=== PATIENT | female | born 2005 | race Caucasian/White ===

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

== ENCOUNTER 2024-12-30 13:37 | Emergency (ER) | payer MEDICARE, MEDICAID, SELFPAY ==
[2024-12-30 13:47] VITALS: BP 127/64; PULSE 114; RESP 18; TEMP 36.4; O2SAT 99
--- NOTE | 2024-12-30 15:14 | ED_ITS ---
HPI - Abdominal Pain General Chief Complaint: Abdominal Pain Stated Complaint: hasn't had bowel movement for 2 weeks Time Seen by Provider: 12/30/24 14:50 Source: patient and RN notes reviewed Mode of arrival: ambulatory Limitations: no limitations History of Present Illness HPI narrative: 19-year-old female presents Express Care with mother and father complaining of constipation for 2 weeks. Mother states the patient has had a bowel movement since December 14. Patient has a history of cerebral palsy unable to communicate her needs. Mother says she has tried MiraLax, stool softeners without relief. Says she has been eating and drinking has a decreased appetite. Mother denies any nausea, vomiting, fevers, diarrhea every other symptoms. Today's she noticed the patient was more irritable 1 her further evaluated. Related Data Home Medications ?Medication ?Instructions ?Recorded ?Confirmed ?Last Taken ?Type benztropine 1 mg tablet 1 mg PO BID PRN IRRITABILITY 11/01/22 11/01/22 Unknown History clonazepam 0.5 mg disintegrating mg 12/30/24 Unknown History tablet escitalopram oxalate 5 mg tablet mg 12/30/24 Unknown History lamotrigine 100 mg tablet mg 12/30/24 Unknown History lamotrigine 25 mg tablet mg 12/30/24 Unknown History risperidone 0.5 mg tablet mg 12/30/24 Unknown History risperidone 1 mg tablet mg 12/30/24 Unknown History Allergies Allergy/AdvReac Type Severity Reaction Status Date / Time No Known Allergies Allergy Verified 12/30/24 13:59 Review of Systems Review of Systems: CONSTITUTIONAL: Denies fever, chills, or sweats. EYES: Denies visual changes, redness, or discharge. ENT: Denies rhinorrhea, congestion, sore throat, or otalgia. CARDIOVASCULAR: Denies chest pain, palpitations, or edema. RESPIRATORY: Denies cough or dyspnea. GASTROINTESTINAL: Denies abdominal pain, nausea, vomiting, or diarrhea. Positive constipation. GENITOURINARY: Denies dysuria or hematuria. SKIN: Denies rash or itching. MUSCULOSKELETAL: Denies back pain, joint pain, or myalgia. NEUROLOGIC: Denies headache, numbness, or weakness. Positive for increased irritability. PSYCHIATRIC: Denies anxiety or depression. All other systems reviewed are negative, except as documented in HPI. [facility] Past Medical History Medical History Seizure disorder Developmental non-verbal disorder Cerebral palsy Social History Social History Smoking status: Never smoker Alcohol intake: never Substance use type: does not use Additional living arrangements comments: with grandparents who are legal guardians Gender identity (if verbalized by the patient): Female Comments At the time of my signature, I reviewed and agree with the nursing past medical, surgical, social, and family history. There is no relevant family history pertinent to the patient complaint. Exam Narrative: GENERAL: This is a well-nourished, well-developed adult, in no apparent distress. They are non ill-appearing, nontoxic appearing. HEAD: normocephalic, atraumatic. EYES: Sclera clear/white. Conjunctiva normal. Vision is grossly intact. Extraocular movements intact EARS: External ears normal, Hearing grossly intact. NOSE: External nose normal . THROAT: Mucous membranes moist, NECK: Neck supple, CARDIOVASCULAR: Regular rate and rhythm without murmurs, gallops, or rubs. RESPIRATORY: Clear to auscultation. Breath sounds equal bilaterally. No wheezes, rales, or rhonchi. GASTROINTESTINAL: Abdomen soft, non-tender, nondistended. Bowel sounds are active. No hepato-splenomegaly, or palpable masses. No guarding or rigidity. SKIN: warm, Dry, intact with no suspicious lesions or rash, good texture and turgor. NEURO: Mental status is baseline for patient. There were no obvious focal neurologic abnormalities. EXTREMITIES: No joint tenderness, effusion, or edema noted. Course Course Emergency Course: Portions of this record may have been created with voice recognition software Level of Care: Express Care Visit Vital Signs Vital signs: Vital Signs Temperature 97.6 F 12/30/24 13:47 Pulse Rate 114 H 12/30/24 13:47 Respiratory Rate 18 12/30/24 13:47 Blood Pressure 127/64 12/30/24 13:47 Pulse Oximetry 99 12/30/24 13:47 Oxygen Delivery Room Air 12/30/24 13:47 Temperature 97.6 F 12/30/24 13:47 Pulse Rate 114 H 12/30/24 13:47 Respiratory Rate 18 12/30/24 13:47 Blood Pressure 127/64 12/30/24 13:47 Pulse Oximetry 99 12/30/24 13:47 Oxygen Delivery Room Air 12/30/24 13:47 Reviewed MDM - Abdominal Pain MDM Narrative Medical decision making narrative: No peritoneal findings on exam. Bowel Sounds are present. Patient is non ill- appearing, nontoxic appearing. Patient appears in no apparent distress. Patient's symptoms likely could be related to constipation. Offered KUB to assess for constipation the cannot rule out bowel obstructions on x-ray there are negative and mother declined because of wait time as she says the patient has become and increasingly irritable waiting. Offered ER transfer for further evaluation for symptoms for a more comprehensive workup and through shared decision making patient's mother is going to contact her PCP tomorrow morning and if she cannot get a follow-up she will go to the ER tomorrow. She is advise any point if her symptoms get worse to go to the ER immediately specially see develops nausea, vomiting, fevers, worsening pain, or any other concerns. Differential Diagnosis Differential diagnosis: Likely abdominal pain, constipation and small bowel obstruction Critical Care Time Critical Care Time Critical Care Time: No Discharge Plan Discharge Clinical Impression: Constipation Qualifiers: Constipation type: unspecified constipation type Qualified Code(s): K59.00 - Constipation, unspecified Patient Disposition: Home Condition: Stable Instructions: Constipation (ED) Additional Instructions: Please contact her PCP tomorrow to arrange follow-up in 2-3 days. Continue to use her medications as directed for constipation. Make sure she is drinking plenty of fluids. May try a fleets enema tonight if needed or contact her doctor for further recommendations. Please go to the ER immediately if she develops worsening pain, nausea, vomiting, fevers, or any serious concerns. Patient Language: Brazilian Prescriptions: No Action benztropine 1 mg tablet 1 mg PO BID PRN (Reason: IRRITABILITY) lamotrigine 25 mg tablet risperidone 1 mg tablet lamotrigine 100 mg tablet risperidone 0.5 mg tablet clonazepam 0.5 mg tablet,disintegrating escitalopram oxalate 5 mg tablet Follow-up/Referrals: Trav,Miriam Loving MD [Primary Care Provider, [facility]] Time of Disposition: 15:02
== END 2024-12-30 15:05 | disposition home or self-care (01) ==
PROVIDERS: PCP Family Medicine
DX: K59.00 Constipation, unspecified (principal); G80.9 Cerebral palsy, unspecified; G40.909 Epilepsy, unspecified, not intractable, without status epilepticus
CPT/HCPCS: 99211; G0463